=== PATIENT | male | born 1935 | race Caucasian/White ===

== ENCOUNTER → 2016-12-30 | Outpatient (CLI) | payer OTHER | LOC: FIMAGING 19:03 | PROVIDERS: ATTEND Internal Medicine | DX: R91.8 Other nonspecific abnormal finding of lung field (principal); I50.9 Heart failure, unspecified; I51.7 Cardiomegaly; Z95.0 Presence of cardiac pacemaker ==

== ENCOUNTER 2017-06-24 10:57 | Emergency (ER) | payer OTHER ==
[2017-06-24] MEDS ORDERED: diphenhydrAMINE 25 MG CAP PO ONE (12:39)
--- NOTE | 2017-06-24 12:42 | EDPHY ---
H & P Stated Complaint: Poss allergic reaction med (amiodorone);feet/hands itchy, swollen,lips puffy - Personal History Current Tetanus Diphtheria and Acellular Pertussis (TDAP): Yes - Medical/Surgical History Hx Cardiac Disease: Yes Other PMH: pacemaker - Social History Smoking Status: Never smoked Time Seen by Provider: 06/24/17 12:39 HPI/ROS: HPI: This is an 82-year-old male who presents with Chief Complaint: Medication reaction Location: Body Quality: Swelling Duration: 2-3 days Signs and Symptoms: Positive itchiness, positive swelling to both feet, positive rash to arms and legs, no shortness of breath, no difficulty talking, no difficulty swallowing Timing: Gradual onset Severity: [id number] Context: Patient has history of atrial fibrillation taking metoprolol and started on amiodarone on 06/14/[address] 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 He scheduled for cardioversion on July 01. He has not had any other new medication/detergents/lotions/foods. Modifying Factors: Called precision structural metal fitter's office this morning and advised to come to the ER Comment: ROS: Constitutional: No fever, no chills, no weight loss Eyes: No blurred vision Respiratory: No shortness of breath, no cough Cardiovascular: No chest pain Gastrointestinal: No nausea, no vomiting no diarrhea Genitourinary: No dysuria Extremities: No myalgias Neurologic: No weakness, no numbness Skin: No rashes Hematologic: No bruising, no bleeding MEDICAL/SURGICAL HISTORY: Gouty arthropathy, atrial fibrillation on Eliquis, osteoporosis, GERD, congestive heart failure, hypothyroidism, essential hypertension ([place]) - Physical Exam Exam: CONSTITUTIONAL: Pleasant well-appearing elderly white male, awake and alert, no obvious distress HEENT: Atraumatic and normocephalic, PERRL, EOMI. Tympanic membranes clear. Oropharynx clear, uvula midline, no exudate and moist pink mucosa. Airway patent. No lymphadenopathy. No meningismus. Cardiovascular: Normal S1/S2, irregular rate, regular rhythm, with murmur PULMONARY/CHEST: Symmetrical and nontender. Clear to auscultation bilaterally Good air movement. No accessory muscle usage. ABDOMEN: Soft, nondistended, nontender, no rebound, no guarding, no peritoneal signs, no masses or organomegaly. No CVAT. EXTREMITIES: 2/2 pulses, no deformities, no clubbing, no cyanosis or edema. NEUROLOGICAL: no focal neuro deficits. GCS 15. SKIN: Warm and dry, no erythema. macular rash. noted to arms and legs. Good capillary refill. (Lisbet Tuttle) Constitutional: Initial Vital Signs Temperature (C) 36.8 C 06/24/17 11:00 Heart Rate 60 06/24/17 11:00 Respiratory Rate 18 06/24/17 11:00 Blood Pressure 143/89 H 06/24/17 11:00 O2 Sat (%) 96 06/24/17 11:00 O2 Delivery Mode Room Air Allergies/Adverse Reactions: No Known Allergies Allergy (Verified 05/18/15 13:38) Home Medications: Medication Instructions Recorded Allopurinol [Allopurinol 300 MG 300 mg PO DAILY 06/24/17 (RX)] Amiodarone HCl [Pacerone (*)] 200 mg PO 06/24/17 Apixaban [Eliquis] 2.5 mg PO 06/24/17 Cimetidine [Tagamet Hb] 200 mg PO 06/24/17 Furosemide [Lasix 20 MG (*)] 20 mg PO 06/24/17 Levothyroxine [Synthroid 50 mcg 06/24/17 (*)] Losartan Potassium [Cozaar 50 mg 100 mg PO 06/24/17 (*)] Metoprolol Tartrate [Lopressor 25 25 mg PO 06/24/17 mg (*)] Medical Decision Making ED Course/Re-evaluation: No signs of angioedema/anaphylaxis/respiratory distress Given Benadryl AFib; rate controlled; compliance on Eliquis 1215: Spoke with Dr. Leigh Cardiology who advised patient to discontinue the amiodarone. His appointment on the for cardioversion will be cancelled and his office will call him today for follow-up appointment in the next 1-2 days. (Lisbet Tuttle) The patient was evaluated and managed by the physician human resources office assistant. I have reviewed this chart and I agree with the findings and plan of care as documented , as indicated by my signature. I am the secondary supervising physician. ( Sarah Britt) - Data Points Medications Given: Discontinued Medications Diphenhydramine HCl (Benadryl) 50 mg PO EDNOW ONE Stop: 06/24/17 12:40 Last Admin: 06/24/17 12:49 Dose: 50 mg Departure - Departure Disposition: Home, Routine, Self-Care Clinical Impression: Medication side effects present, Chronic atrial fibrillation, Chronic anticoagulation Condition: Good Additional Instructions: Dr. Reese Fisher's office will call you today or tomorrow for a follow-up appointment. has advised you to discontinue amiodarone in your appointment on July 01 will be canceled. Take Benadryl 25-50 mg as needed for pruritus, shortness of breath, allergic reaction. Referrals: Kain Gonzalez MD [Primary Care Provider] - As per Instructions
[2017-06-24 13:14] VITALS: BP 140/107; PULSE 72; RESP 16; TEMP 97.5; O2SAT 95
== END 2017-06-24 13:15 | disposition home or self-care (01) ==
DX: I48.2 Chronic atrial fibrillation (principal); T46.2X5A Adverse effect of other antidysrhythmic drugs, initial encounter; D68.9 Coagulation defect, unspecified; Z95.0 Presence of cardiac pacemaker

== ENCOUNTER 2017-09-24 05:30 | Emergency (ER) | payer OTHER ==
[2017-09-24 05:39] VITALS: PULSE 60; TEMP 97.9; O2SAT 96
[2017-09-24] MEDS ORDERED: OXYMETAZOLINE 30 ML NASAL SPRAY ONE (05:39)
[2017-09-24] MEDS ORDERED: SILVER NITRATE APPLICATOR 1 APPL TP ONE ×2 (05:39→05:50)
[2017-09-24] MEDS ORDERED: LIDOCAINE HCL 4% TOPICAL SOLN 50ML ONE (05:43)
[2017-09-24] MEDS ORDERED: OXYMETAZOLINE 30 ML NASAL SPRAY EACHNARE ONE (05:50)
[2017-09-24] MEDS ORDERED: LIDOCAINE 4% 5 ML AMP TP ONE (05:51)
--- NOTE | 2017-09-24 06:56 | EDPHY ---
H & P Stated Complaint: epistaxis Time Seen by Provider: 09/24/17 05:39 HPI/ROS: Chief Complaint: Nosebleed HPI: 79-year-old male with a history of fibrillation on Eliquis woke this morning at 4 o'clock in morning with a brisk bleed from his left nostril. He applied direct pressure and tried [facility] without any success. Not have a history of prior nosebleeds in the past. No headaches. Falls or traumas. No nausea or vomiting. No chest pain shortness of breath. ROS: 10 point Review of Systems is negative except as noted in the HPI. PMH: Atrial fibrillation, on Eliquis Social History: No smoking, no alcohol, no recreational drug use Family History: non-contributory Physical Exam: Gen: Awake, Alert, No Distress HEENT: Nose: He has active bleeding from his left nostril after packing removal. Bleeding is anterior in from a site along the nasal septum consistent with Kiesselbach's plexus Eyes: PERRLA, EOMI Mouth: Moist mucosa Neck: Supple, no JVD Ext: no edema, non-tender Skin: no rash Neuro: CN II-XII intact, Sensation grossly intact, Strength 5/5 in bilateral upper and lower extremities - Personal History Current Tetanus Diphtheria and Acellular Pertussis (TDAP): Yes - Medical/Surgical History Hx Cardiac Disease: Yes Other PMH: pacemaker, afib, htn, ortho surgeriexs, gallbladder - Social History Smoking Status: Never smoked Constitutional: Initial Vital Signs Temperature (C) 36.6 C 09/24/17 05:36 Heart Rate 60 09/24/17 05:36 Respiratory Rate 96 H 09/24/17 05:36 Blood Pressure 177/103 H 09/24/17 05:36 O2 Sat (%) 96 09/24/17 05:36 O2 Delivery Mode Room Air Allergies/Adverse Reactions: adhesive tape Allergy (Verified 09/24/17 05:36) Home Medications: Medication Instructions Recorded Allopurinol [Allopurinol 300 MG 300 mg PO DAILY 06/24/17 (RX)] Apixaban [Eliquis] 2.5 mg PO 06/24/17 Cimetidine [Tagamet Hb] 200 mg PO 06/24/17 Furosemide [Lasix 20 MG (*)] 20 mg PO 06/24/17 Levothyroxine [Synthroid 50 mcg 06/24/17 (*)] Losartan Potassium [Cozaar 50 mg 100 mg PO 06/24/17 (*)] Metoprolol Tartrate [Lopressor 25 25 mg PO 06/24/17 mg (*)] Medical Decision Making Procedures: Procedure: Epistaxis control. After verbal consent was obtained, the patient was anesthetized with Nikos- Synephrine a 4% lidocaine. The anterior epistaxis was identified. The patient was treated with silver nitrate cautery. Following the procedure the patient was re-examined and the bleeding was well controlled. The patient tolerated the procedure well. The procedure was performed by myself. - Data Points Medications Given: Discontinued Medications Lidocaine HCl (Lidocaine Hcl 4%) 1 mg TP EDNOW ONE Stop: 09/24/17 05:52 Last Admin: 09/24/17 05:53 Dose: Not Given Oxymetazoline HCl (Afrin Nasal [place]) 2 sprays [place] EDNOW ONE Stop: 09/24/17 05:51 Last Admin: 09/24/17 05:53 Dose: Not Given Silver Nitrate/Potassium Nitrate (Silver Nitrate Applicator) 2 each TP EDNOW ONE Stop: 09/24/17 05:51 Last Admin: 09/24/17 05:53 Dose: Not Given Departure - Departure Disposition: Home, Routine, Self-Care Clinical Impression: Acute anterior epistaxis Condition: Good Instructions: Nosebleed (ED) Additional Instructions: If your nose begins to bleed again apply the nose clamp to the soft part of your nose and leave it in place for 30 min. If bleeding continues return immediately to the emergency department. Follow up with the ear nose and throat doctor on Tuesday. Referrals: Kain Gonzalez MD [Primary Care Provider] - As per Instructions Amy Taylor MD [Medical Doctor] - As per Instructions
[2017-09-24 07:09] VITALS: BP 173/109; RESP 18
== END 2017-09-24 07:09 | disposition home or self-care (01) ==
PROC: 2Y41X5Z Packing of Nasal Region using Packing Material (ICD-10-PCS; principal; 2017-09-24)
DX: R04.0 Epistaxis (principal); I10 Essential (primary) hypertension; Z95.0 Presence of cardiac pacemaker

== ENCOUNTER → 2018-08-23 | Outpatient (CLI) | payer OTHER | LOC: FIMAGING 09:35 | PROVIDERS: ATTEND Internal Medicine | DX: R05 Cough (principal); M54.5 Low back pain; R07.81 Pleurodynia; Z95.0 Presence of cardiac pacemaker ==

== ENCOUNTER 2018-10-22 17:29 | Emergency (ER) | payer OTHER ==
--- NOTE | 2018-10-22 17:48 | EDPHY ---
H & P Time Seen by Provider: 10/22/18 17:47 HPI/ROS: CHIEF COMPLAINT: Facial laceration HISTORY OF PRESENT ILLNESS: Patient was working on a water pump compressor at his house and thought the pressure is no longer starch treating assistant in the water pressure when he tried to loosen a valve it popped open and hit him on the left cheek. Denies any loss consciousness or eye pain or vision changes. He does take Xarelto. He reports bleeding was well controlled with direct pressure. REVIEW OF SYSTEMS: Constitutional: No fever, no chills. Eyes: No discharge. ENT: No sore throat. Cardiovascular: No chest pain, no palpitations. Respiratory: No cough, no shortness of breath. Gastrointestinal: No abdominal pain, no vomiting. Genitourinary: No hematuria. Musculoskeletal: No back pain. Skin: No rashes. Neurological: No headache. Smoking Status: Never smoked Physical Exam: General Appearance: Alert and no distress. ENT: normal dentition. No tonsillar exudate or swelling. Eyes: Pupils equal and round no injection. Respiratory: Chest is nontender, lungs are clear to auscultation. Cardiac: regular rate and rhythm. No lower extremity edema Gastrointestinal: Abdomen is soft and nontender, no masses, bowel sounds normal. Musculoskeletal: Neck is supple and nontender. Extremities have full range of motion and are nontender without deformity Skin: No rashes. 2 cm curved laceration to the left cheek Neuro: Cranial nerves grossly intact. Ambulatory. Constitutional: Initial Vital Signs Temperature (C) 36.9 C 10/22/18 17:29 Heart Rate 62 10/22/18 17:29 Respiratory Rate 18 10/22/18 17:29 Blood Pressure 184/108 H 10/22/18 17:29 O2 Sat (%) 92 10/22/18 17:29 O2 Delivery Mode Room Air Allergies/Adverse Reactions: adhesive tape Allergy (Verified 10/22/18 17:29) Home Medications: Medication Instructions Recorded Allopurinol [Allopurinol 300 MG 300 mg PO DAILY 06/24/17 (RX)] Apixaban [Eliquis] 2.5 mg PO 06/24/17 Furosemide [Lasix 20 MG (*)] 20 mg PO 06/24/17 Levothyroxine [Synthroid 50 mcg 06/24/17 (*)] Losartan Potassium [Cozaar 50 mg 100 mg PO 06/24/17 (*)] Metoprolol Tartrate [Lopressor 25 25 mg PO 06/24/17 mg (*)] Medical Decision Making Procedures: Procedure: Laceration repair. Verbal consent was obtained from the patient. The 2 cm laceration on the left cheek was anesthetized in the usual fashion. The wound was irrigated, draped and explored to its base with a gloved finger. There were no deep structures involved. No tendon injury was identified. The wound was repaired with 6-0 nylon 3 sutures were placed. The wound repair was done without complication and the wound was closely approximated. The procedure was performed by myself. ED Course/Re-evaluation: Patient here with facial laceration after a bowel popped on a water pump. He has no signs of eye injury or deep structure involvement the face. Patient is alert and oriented with no other signs of injury. Laceration repair as detailed below. Departure - Departure Disposition: Home, Routine, Self-Care Clinical Impression: Facial laceration Condition: Good Instructions: Laceration (ED) Additional Instructions: Follow-up in 5 days for suture removal Referrals: Kain Gonzalez MD [Primary Care Provider] - As per Instructions
[2018-10-22 18:44] VITALS: BP 121/82
== END 2018-10-22 18:44 | disposition home or self-care (01) ==
PROC: 0HQ1XZZ Repair Face Skin, External Approach (ICD-10-PCS; principal; 2018-10-22)
DX: S01.412A Laceration without foreign body of left cheek and temporomandibular area, initial encounter (principal); W20.8XXA Other cause of strike by thrown, projected or falling object, initial encounter; Y93.E9 Activity, other interior property and clothing maintenance; Y92.019 Unspecified place in single-family (private) house as the place of occurrence of the external cause; Z79.01 Long term (current) use of anticoagulants

== ENCOUNTER → 2019-03-21 | Outpatient (CLI) | payer OTHER | LOC: FIMAGING 09:09 ==

== ENCOUNTER → 2019-03-30 | Outpatient (CLI) | payer OTHER | LOC: FIMAGING 14:09 ==